=== PATIENT | female | born 1975 | race Caucasian/White ===

== ENCOUNTER 2020-02-28 12:47 | Emergency (ER) | payer OTHER ==
[~2020-02-28] VITALS: Ht 175.3 cm; Wt 52.2 kg
[2020-02-28] MEDS: IV NORMAL SALINE 1,000ML 1,000 ML IV ONE (13:00)
[2020-02-28] MEDS: IOHEXOL 300 MG/ML 75 ML VIAL. IV ONE (13:15)
[2020-02-28] MEDS: IOHEXOL 240 MG/ML 50ML VIAL. PO ONE (13:15)
[2020-02-28 13:25] LABS: BASO % 0 % (0-3); EOS % 0 % (0-3); HEMATOCRIT 38.9 % (36.0-47.0); HEMOGLOBIN 12.8 g/dL (12.0-15.5); LYMPH # 0.8 x10^3/uL (1.0-4.8); LYMPH % 9 % (24-48); MEAN CORPUSCULAR HEMOGLOBIN 28 pg (25-35); MEAN CORPUSCULAR HGB CONC 33 g/dL (31-37); MEAN CORPUSCULAR VOLUME 84 fL (79-100); MONO # 0.8 x10^3/uL (0.0-1.1); MONO % 8 % (0-9); NEUT # 7.5 x10^3uL (1.8-7.7); NEUT % 82 % (31-73); PLATELET COUNT 229 x10^3/uL (140-400); RED BLOOD COUNT 4.64 x10^6/uL (3.50-5.40); RED CELL DISTRIBUTION WIDTH 13.2 % (11.5-14.5); WHITE BLOOD COUNT 9.2 x10^3/uL (4.0-11.0)
[2020-02-28 13:42] LABS: POTASSIUM ISTAT 2.9 mmol/L (3.5-5.0)
[2020-02-28 13:43] LABS: HEMOGLOBIN ISTAT 13.3 gm/dL
[2020-02-28 14:00] LABS: BACTERIA,URINE MANY /HPF (0-FEW); BILIRUBIN,URINE NEG (NEG); CLARITY,URINE HAZY; COLOR,URINE YELLOW; GLUCOSE,URINE NEG (NEG); NITRITE,URINE POS (NEG); UROBILINOGEN,URINE 0.2 mg/dL (0.2 mg/dL)
[2020-02-28 14:01] LABS: SQUAMOUS EPITHELIAL CELL,UR MOD /LPF
--- NOTE | 2020-02-28 14:35 | PHYS DOC ---
Past History Past Medical History: Anxiety, GERD, Other Additional Past Medical Histor: MS, Celiac disease Past Surgical History: No Surgical History Smoking: Non-smoker Alcohol Use: None Drug Use: None Adult General Chief Complaint Chief Complaint: ABDOMINAL PAIN HPI HPI 44-year-old female with past medical history of multiple sclerosis presents with report of left lower quadrant abdominal pain which is crampy and burning in nature. Patient reports she has not had a bowel movement in the last 4-5 days. Reports history of celiac disease and typically has diarrhea. Denies any fever. Reports some associated nausea without vomiting. Denies known sick contacts. Denies travel outside [place]. Review of Systems Review of Systems Constitutional: Denies fever or chills Eyes: Denies redness or eye pain HENT: Denies nasal congestion or sore throat Respiratory: Denies cough or shortness of breath Cardiovascular: Denies chest pain or palpitations GI: Reports left lower quadrant abdominal pain, nausea, and constipation : Denies dysuria or hematuria Musculoskeletal: Denies back pain or joint pain Integument: Denies rash or skin lesions Neurologic: Denies headache, focal weakness or sensory changes Complete systems were reviewed and found to be within normal limits, except as documented in this note. Current Medications Current Medications Current Medications Medications (Trade) Dose Ordered Sig/[place] Start Time Stop Time Status Last Admin Dose Admin Ceftriaxone Sodium 1 gm/ Sodium Chloride 50 ml @ 100 mls/hr 1X ONCE 02/28/20 14:15 02/28/20 14:44 Iohexol (Omnipaque 240 Mg/ml) 50 ml 1X ONCE 02/28/20 13:15 02/28/20 13:17 DC Iohexol (Omnipaque 300 Mg/ml) 75 ml 1X ONCE 02/28/20 13:15 02/28/20 13:17 DC Sodium Chloride 1,000 ml @ 1,000 mls/hr 1X ONCE 02/28/20 13:00 02/28/20 13:59 DC 02/28/20 13:00 1,000 MLS/HR Allergies Allergies Allergies Coded Allergies Type Severity Reaction Last Updated Verified Penicillins Allergy Unknown 02/28/20 Yes adhesive tape Allergy Unknown 02/28/20 Yes Physical Exam Physical Exam Constitutional: Well developed, well nourished, no acute distress, non-toxic appearance HENT: Normocephalic, atraumatic, oropharynx moist Eyes: Pupils unequal: left < right (baseline), conjunctiva normal, no discharge Neck: Normal range of motion, no tenderness, supple Cardiovascular: Heart rate normal, regular rhythm Lungs & Thorax: Bilateral breath sounds clear to auscultation, no wheezing Abdomen: Soft, LLQ and suprapubic tenderness, distention, no rebound tenderness, no guarding Skin: Warm, dry, no erythema, no rash Back: No tenderness, left CVA tenderness Extremities: No tenderness, poor muscle tone BLE > BUE, no edema Neurologic: Alert and oriented X 3, speech normal, decreased strength to BLE (baseline) Psychologic: Affect normal, judgment normal Current Patient Data Vital Signs Vital Signs Date Time Temp Pulse Resp B/P (MAP) Pulse Ox O2 Delivery O2 Flow Rate FiO2 02/28/20 13:15 98.6 116 16 159/96 (117) 99 Room Air Lab Results Laboratory Tests Test 02/28/20 13:05 02/28/20 13:28 White Blood Count 9.2 x10^3/uL (4.0-11.0) Red Blood Count 4.64 x10^6/uL (3.50-5.40) Hemoglobin 12.8 g/dL (12.0-15.5) POC Hemoglobin 13.3 gm/dL Hematocrit 38.9 % (36.0-47.0) POC Hematocrit 39 % Mean Corpuscular Volume 84 fL (79-100) Mean Corpuscular Hemoglobin 28 pg (25-35) Mean Corpuscular Hemoglobin Concent 33 g/dL (31-37) Red Cell Distribution Width 13.2 % (11.5-14.5) Platelet Count 229 x10^3/uL (140-400) Neutrophils (%) (Auto) 82 % (31-73) H Lymphocytes (%) (Auto) 9 % (24-48) L Monocytes (%) (Auto) 8 % (0-9) Eosinophils (%) (Auto) 0 % (0-3) Basophils (%) (Auto) 0 % (0-3) Neutrophils # (Auto) 7.5 x10^3uL (1.8-7.7) Lymphocytes # (Auto) 0.8 x10^3/uL (1.0-4.8) L Monocytes # (Auto) 0.8 x10^3/uL (0.0-1.1) Eosinophils # (Auto) 0.0 x10^3/uL (0.0-0.7) Basophils # (Auto) 0.0 x10^3/uL (0.0-0.2) POC Sodium 141 mmol/L (135-145) POC Potassium 2.9 mmol/L (3.5-5.0) *L POC Chloride 102 mmol/L (98-110) POC Total CO2 28 mmol/L (23-32) Anion Gap 15 mmol/L (6-14) H POC Blood Urea Nitrogen 11 mg/dL (8-26) POC Creatinine 0.9 mg/dL (0.5-1.4) Glucose Level 114 mg/dL (60-99) H POC Ionized Calcium (Sudhakar) 1.18 mmol/L (1.13-1.32) Urine Collection Type U cath Urine Color Yellow Urine Clarity Hazy Urine pH 5.5 Urine Specific [place] 1.020 Urine Protein Trace (NEG-TRACE) Urine Glucose (UA) Neg mg/dL (NEG) Urine Ketones (Stick) Trace mg/dL (NEG) Urine Blood Large (NEG) Urine Nitrite Pos (NEG) Urine Bilirubin Neg (NEG) Urine Urobilinogen Dipstick 0.2 mg/dL (0.2 mg/dL) Urine Leukocyte Esterase Trace (NEG) Urine RBC 11-20 /HPF (0-2) Urine WBC 11-20 /HPF (0-4) Urine Squamous Epithelial Cells Mod /LPF Urine Transitional Epithelial Cells Few /LPF Urine Bacteria Many /HPF (0-FEW) Urine Mucus Slight /LPF EKG EKG [] Radiology/Procedures Radiology/Procedures PROCEDURE: CT ABD PELV W/ORAL&IV CONTRAST EXAM: CT Abdomen and Pelvis with IV contrast INDICATION: Left lower quadrant abdominal pain, tightness and pressure. History of celiac disease and kidney stones. TECHNIQUE: Multi-detector row CT images were acquired from the lung bases through the abdomen and pelvis with the use of IV contrast. Sagittal and coronal images were acquired from the transaxial data. All CT scans performed at this facility utilize dose optimization techniques as appropriate to the exam, including the following: Automated exposure control and adjustment of the mA and/or KV according to patient size (this includes techniques or standardized protocols for targeted exams where dose is indication/reason for exam). IV CONTRAST: Administered ORAL CONTRAST: Administered COMPARISON: None FINDINGS: LOWER CHEST: Unremarkable LIVER: Unremarkable BILIARY SYSTEM: Gallbladder is unremarkable. Bile ducts are not dilated. PANCREAS: Unremarkable SPLEEN: Unremarkable ADRENALS: Unremarkable KIDNEYS & URETERS: Left nephromegaly and delayed nephrogram related to a 9 mm ureteropelvic junction stone, associated with grade 2 hydronephrosis. Normal right kidney. BLADDER: Unremarkable REPRODUCTIVE ORGANS: Unremarkable GASTROINTESTINAL: Fluid-filled large bowel with a small short segment of luminal narrowing, likely reflecting a peristaltic contraction the left lower quadrant pelvis (image 4 of axial series 2) measuring 2 cm is noted. The appendix is normal. MESENTERY/PERITONEUM/RETROPERITONEUM: Unremarkable VASCULAR: Unremarkable LYMPH NODES: No adenopathy OSSEOUS & SOFT TISSUES: Unremarkable IMPRESSION: 1. Left proximal urinary tract obstruction from a 9 mm UPJ stone associated with delayed left nephrogram and grade 2 hydronephrosis. Cannot exclude associated hydronephrosis. Correlate for any clinical evidence of pyelonephritis. No renal abscess is shown. 2. Fluid-filled large bowel is nonspecific. There is a probable transient peristaltic contraction in the proximal sigmoid colon. Recommend clinical follow-up which may include lower endoscopy if clinically warranted. Electronically signed by: Chitra Morley MD (02/28/2020 3:06 PM) [id number] Course & Med Decision Making Course & Med Decision Making Pertinent Labs and Imaging studies reviewed. (See chart for details) Patient with past medical history of muscular sclerosis presents left lower quadrant abdominal pain and history of constipation. Tenderness to left lower quadrant and suprapubic region. Labs obtained and posted to chart. Hypokalemia noted. Straight cath UA with signs of infection. Empiric antibiotic initiated. CT abdomen/pelvis with oral and IV contrast with 9mm left UPJ calculi with hydronephrosis. Additional LLQ fluid filled bowel with narrowing which is reportedly more likely perastaltic contraction. Patient requiring transfer for urology consultation and treatment. Discussed findings and plan with patient and family, who acknowledge understanding and agreement and request transfer to [facility]. Util[facility] transfer line. Dr. Natividad Jenkins (hospitalist) accepting of transfer. Dragon Disclaimer Dragon Disclaimer This electronic medical record was generated, in whole or in part, using a voice recognition dictation system. Departure Departure: Impression: Primary Impression: Hydronephrosis with renal calculous obstruction Additional Impressions: Urinary tract infection Hypokalemia Disposition: 05 TRANSFER OTHER ([facility]) Condition: STABLE Referrals: AUSTYN SILVEIRA MD (PCP) Problem Qualifiers Additional Impressions: Urinary tract infection Urinary tract infection type: acute cystitis Hematuria presence: with hematuria Qualified Codes: N30.01 - Acute cystitis with hematuria ADELA MIRZA DO Feb 28, 2020 14:35
[2020-02-28] MEDS ORDERED: IV NORMAL SALINE 50ML 50 ML ONE (14:59)
[2020-02-28] MEDS ORDERED: cefTRIAXone SODIUM 1 GM VIAL ONE (14:59)
--- NOTE | 2020-02-28 15:08 | RAD ---
EXAM: CT Abdomen and Pelvis with IV contrast INDICATION: Left lower quadrant abdominal pain, tightness and pressure. History of celiac disease and kidney stones. TECHNIQUE: Multi-detector row CT images were acquired from the lung bases through the abdomen and pelvis with the use of IV contrast. Sagittal and coronal images were acquired from the transaxial data. All CT scans performed at this facility utilize dose optimization techniques as appropriate to the exam, including the following: Automated exposure control and adjustment of the mA and/or KV according to patient size (this includes techniques or standardized protocols for targeted exams where dose is indication/reason for exam). IV CONTRAST: Administered ORAL CONTRAST: Administered COMPARISON: None FINDINGS: LOWER CHEST: Unremarkable LIVER: Unremarkable BILIARY SYSTEM: Gallbladder is unremarkable. Bile ducts are not dilated. PANCREAS: Unremarkable SPLEEN: Unremarkable ADRENALS: Unremarkable KIDNEYS & URETERS: Left nephromegaly and delayed nephrogram related to a 9 mm ureteropelvic junction stone, associated with grade 2 hydronephrosis. Normal right kidney. BLADDER: Unremarkable REPRODUCTIVE ORGANS: Unremarkable GASTROINTESTINAL: Fluid-filled large bowel with a small short segment of luminal narrowing, likely reflecting a peristaltic contraction the left lower quadrant pelvis (image 4 of axial series 2) measuring 2 cm is noted. The appendix is normal. MESENTERY/PERITONEUM/RETROPERITONEUM: Unremarkable VASCULAR: Unremarkable LYMPH NODES: No adenopathy OSSEOUS & SOFT TISSUES: Unremarkable IMPRESSION: 1. Left proximal urinary tract obstruction from a 9 mm UPJ stone associated with delayed left nephrogram and grade 2 hydronephrosis. Cannot exclude associated hydronephrosis. Correlate for any clinical evidence of pyelonephritis. No renal abscess is shown. 2. Fluid-filled large bowel is nonspecific. There is a probable transient peristaltic contraction in the proximal sigmoid colon. Recommend clinical follow-up which may include lower endoscopy if clinically warranted. Electronically signed by: Chitra Morley MD (02/28/2020 3:06 PM) [id number]
[2020-02-28 15:32] VITALS: BP 164/74
== END 2020-02-28 17:41 | disposition short-term general hospital (02) ==
LOC: ER 12:47
DX: N13.2 Hydronephrosis with renal and ureteral calculous obstruction (principal); N39.0 Urinary tract infection, site not specified; E87.6 Hypokalemia; R19.7 Diarrhea, unspecified; K21.9 Gastro-esophageal reflux disease without esophagitis; G35 Multiple sclerosis; Z88.0 Allergy status to penicillin; Z88.8 Allergy status to other drugs, medicaments and biological substances
CPT/HCPCS: 36415; 74177; 80047; 81001; 85025; 87086; 96361; 96365; 99285; J0696; Q9966; Q9967; J7030